=== PATIENT | female | born 1970 ===

== ENCOUNTER 2017-05-19 11:00 | Outpatient (RCR) | payer OTHER ==
[~2017-05-19 11:00] MED LIST changes: -LIDOCAINE/SOD BICARB 8.4% SYR ID ONE
--- NOTE | 2017-05-19 13:51 | RADIOLOGY IMAGING REPORT ---
[place] [facility] [place]: Mitali Leos : 1970 MR: [id number] V: [id number] EXAM DATE: ORDERING PHYSICIAN: KAUSHIK VAZQUEZ TECHNOLOGIST: Location: [facility] - [place] Patient: Mitali Leos : 1970 Visit/Account:[id number] Date of Sevice: 05/19/2017 EXAMINATION: Cervical spine MRI without IV contrast HISTORY: Right hand weakness. COMPARISON: None. TECHNIQUE: Multi-planar, multi-sequence cervical spine MRI was performed without intravenous contras t administration. FINDINGS: Alignment: Normal. Vertebral marrow signal: Negative. Cranio-cervical junction: Moderate hypertrophy of the atlantodental joint and left atlantoaxial joint . Normal alignment. Visualized posterior fossa: Negative. Soft tissues: Negative. Cervical cord: Negative. Disc Spaces: C1-2: No significant stenosis. C2-3: Small broad-based disc osteophyte complex with severe left facet hypertrophy. No spinal canal stenosis or right neural foraminal stenosis. Mild left neural foraminal stenosis. C3-4: Small broad-based disc osteophyte complex with severe left and [id number] right facet hyp ertrophy and mild bilateral uncovertebral hypertrophy. No significant spinal canal stenosis. Modera te right and severe left neural foraminal stenosis. C4-5: Small broad-based disc osteophyte complex with severe bilateral facet hypertrophy and mild unco vertebral hypertrophy. No spinal canal stenosis. Mild left and moderate right neural foraminal sten osis. C5-6: Small broad-based disc osteophyte complex with severe left and moderate right facet hypertrophy and mild uncovertebral hypertrophy. No spinal canal stenosis. Mild right and moderate left neural foraminal stenosis. C6-7: Small broad-based disc osteophyte complex with severe left and mild right facet hypertrophy and mild uncovertebral hypertrophy. No spinal canal stenosis. Mild right and moderate to severe left n eural foraminal stenosis. C7-T1: Mild bilateral facet hypertrophy. No significant stenosis. Upper thoracic spine: Small left central disc protrusion at T2-T3 without stenosis. IMPRESSION: Multilevel degenerative disc disease and severe facet hypertrophy. No significant spinal canal steno sis. Multilevel neural foraminal stenosis. Please see above report for level by level description. Report Dictated By: Eloy Francis MD at 05/19/2017 1:40 PM Report E-Signed By: Eloy Francis MD at 05/19/2017 1:47 PM WSN:[id number]
[2017-05-19] MEDS ORDERED: AMPH25CA7 PO (15:09)
[2017-05-20] MEDS ORDERED: LIDOCAINE/SOD BICARB 8.4% SYR ID ONE (13:30)
[2017-05-20] MEDS ORDERED: GADOBENATE 529MG/1ML 15ML VIAL IVP ONE (13:53)
--- NOTE | 2017-05-20 16:14 | RADIOLOGY IMAGING REPORT ---
FACILITY: [facility] - [place] PATIENT NAME: Mitali Leos : 1970 MR: [id number] V: [id number] EXAM DATE: ORDERING PHYSICIAN: KAUSHIK VAZQUEZ TECHNOLOGIST: Location: [facility] - [place] Patient: Mitali Leos : 1970 Visit/Account:[id number] Date of Sevice: 05/20/2017 Examination: MR brain without and with contrast History: Right hand weakness Comparison: January 21, 2017 Technique: Multiplane MR imaging was performed through the brain without and with contrast. 14 cc IV multihance was administered. Findings: Diffusion: None Ventricles: Normal Midline shift: None Extraxial fluid: None Midline craniocervical structures: Normal Parenchyma: Punctate unchanged right frontal juxtacortical white matter high signal focus and punctat e left frontal deep white matter high signal focus. Enhancement: Small benign right frontal lobe developmental venous anomaly noted. No pathologic enhan cement. Vascular flow voids: Normal Orbits and paranasal sinuses: Small right maxillary sinus mucous retention cyst. Impression: 1. No acute finding. 2. Two unchanged punctate white matter high signal foci of doubtful clinical significance. 2. Otherwise normal brain MR without and with contrast. Report Dictated By: Almas Linda MD at 05/20/2017 4:05 PM Report E-Signed By: Almas Linda MD at 05/20/2017 4:10 PM WSN:[id number]
== END 2017-05-20 18:00 | disposition home or self-care (01) ==
LOC: RAD 11:00 → EDSTATUS 11:49 → RAD 05-20 18:00
PROVIDERS: ATTEND Emergency Medicine
DX: R29.898 Other symptoms and signs involving the musculoskeletal system (principal)
CPT/HCPCS: 70553; 72141; A9577

== ENCOUNTER → 2017-05-19 | Outpatient (CLI) | payer OTHER ==
[~2017-05-19] MED LIST: AMOX-362 PO; AMPH10CA17 PO; AMPH20TA18 PO; AMPH25CA7 PO; CEPH500T7 PO; CIPR-214 PO; CYCL10TA29 PO; DEXT10TA9 PO; FLU60SYR30 IM ONLY; FLUT16SP19; KET10 PO; LIDOCAINE/SOD BICARB 8.4% SYR ID ONE; NAPR-724 PO; SERT-181 PO; SERT20OR6 PO
--- NOTE | 2017-05-19 14:46 | EKG ---
FACILITY: [facility] PATIENT NAME: EMILY RNEO : [id number] MR: [id number] V: [id number] EXAM DATE: ORDERING PHYSICIAN: KAUSHIK VAZQUEZ TECHNOLOGIST: JANESRN Test Reason : DIZZINESS Blood Pressure : / mmHG Vent. Rate : 113 BPM Atrial Rate : 113 BPM P-R Int : 158 ms QRS Dur : 092 ms QT Int : 320 ms P-R-T Axes : 062 045 -89 degrees QTc Int : [address] and T wave abnormality, consider inferolateral ischemia Abnormal ECG When compared with ECG of 07-MAY-2017 11:41, premature ventricular complexes are no longer present T wave inversion now evident in Inferior leads T wave inversion now evident in Lateral leads Confirmed by KAUSHIK VAZQUEZ ([id number]) on 05/27/2017 3:55:29 PM Referred By: RUMA MYLES Confirmed By:KAUSHIK VAZQUEZ
[2017-05-19 15:06] LABS: PLATELET COUNT, AUTOMATED 446 K/uL (150-450)
--- NOTE | 2017-05-19 15:14 | RADIOLOGY IMAGING REPORT ---
FACILITY: [facility] PATIENT NAME: Mitali Leos : 1970 MR: [id number] V: [id number] EXAM DATE: ORDERING PHYSICIAN: RUMA MYLES TECHNOLOGIST: Location: [facility] - [place] Patient: Mitali Leos : 1970 Visit/Account:[id number] Date of Sevice: 05/19/2017 2 VIEWS CHEST INDICATION: Dizziness. COMPARISON: 05/07/2017. FINDINGS: Cardiomediastinal silhouette and pulmonary vessels within normal limits. There is no focal infiltrate or lobar consolidation. There is no pneumothorax or pleural effusion. No nodule. Upper abdomen is unremarkable. No acute bony abnormality. IMPRESSION: 1. No acute cardiopulmonary process. Report Dictated By: Abdi Shrestha at 05/19/2017 3:07 PM Report E-Signed By: Abdi Shrestha at 05/19/2017 3:09 PM WSN:[id number]
== END ==
LOC: LAB 14:25
PROVIDERS: ATTEND Nurse Practitioner Primary Care
DX: R42 Dizziness and giddiness (principal); R94.31 Abnormal electrocardiogram [ECG] [EKG]
CPT/HCPCS: 36415; 71046; 82040; 82247; 82310; 82374; 82435; 82565; 82947; 84075; 84132; 84155; 84295; 84443; 84450; 84460; 84484; 84520; 85025

== ENCOUNTER 2017-06-12 16:53 | Emergency (ER) | payer OTHER ==
[~2017-06-12] VITALS: Ht 164.5 cm; Wt 68.5 kg
--- NOTE | 2017-06-12 16:57 | ER Report ---
History and Physical Time Seen By MD: 16:56 HPI/ROS CHIEF COMPLAINT: r ankle injury HISTORY OF PRESENT ILLNESS: Pt here for evaluation of r ankle injury. 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 Pt felt a "crack" in her r ankle when she slipped. Denies loc. no headache. Not sure if she hit her head. pt denies knee pain. no other symptoms. no numbness. hurts to move ankle REVIEW OF SYSTEMS: Neuro: No numbness, no loc, no headache Musculoskeletal: No back pain, + ankle pain R Allergies: Coded Allergies: diazepam (Verified Allergy, Unknown, 05/07/17) Home Meds Active Scripts Amphet Asp/Amphet/D-Amphet (ADDERALL XR 10 MG CAPSULE) 10 Mg Cap.er.24h, 10 MG PO QHS, #30 TAB Prov:KAUSHIK VAZQUEZ MD 06/13/17 Hydrocodone Bit/Acetaminophen (HYDROCODON-ACETAMINOPHEN 5-325) 1 Each Tablet, 1 EACH PO Q4-6H Y for PAIN, #20 TAB Prov:MADELYN HIGH DO 06/12/17 Amphet Asp/Amphet/D-Amphet (DEXTROAMP-AMPHET ER 25 MG CAP) 25 Mg Cap.er.24h, 25 MG PO DAILY, #30 TAB Prov:KAUSHIK VAZQUEZ MD 05/19/17 Cyclobenzaprine Hcl (CYCLOBENZAPRINE HCL) 10 Mg Tablet, 5-10 MG PO TID Y for MUSCLE SPASMS, #270 TAB Prov:KAUSHIK VAZQUEZ MD 05/08/17 Fluticasone Prop 50 Mcg Ns (FLONASE 50 MCG NS) 16 Gm [place].susp, 2 SPRAYS NA QDAY for 30 Days, #1 BOT 11 Refills Prov:ERIKA FOSTER JR, MD 04/23/17 Naproxen (NAPROXEN) 500 Mg Tablet, 500 MG PO TID, #30 TAB 5 Refills Prov:KAUSHIK VAZQUEZ MD 03/17/17 Discontinued Reported Medications Sertraline Hcl (SERTRALINE HCL) 100 Mg Tablet, 1.5 TAB PO QDAY, TAB 03/17/17 Discontinued Scripts Amphet Asp/Amphet/D-Amphet (ADDERALL XR 10 MG CAPSULE) 10 Mg Cap.er.24h, 10 MG PO QHS, #30 TAB Prov:KAUSHIK VAZQUEZ MD 05/08/17 Ketorolac Tromethamine (KETOROLAC TROMETHAMINE) 10 Mg Tab, 10 MG PO Q6H, #20 TAB Prov:RUTH KENNEDY [employer] LEAD 05/07/17 Past Medical/Surgical History pmhx: anxiety, migraines; low back pain Pshx: non contribuitory Reviewed Nurses Notes: Yes Hx Smoking: Yes Smoking Status: Former Smoker Exposure to Second Hand Smoke?: Yes Hx Substance Use Disorder: No Hx Alcohol Use: Yes Constitutional Vital Sign - Last 24 Hours 06/12/17 06/12/17 06/12/17 06/12/17 16:53 17:00 17:01 17:08 Temp 98.0 Pulse ??? 107 103 Resp 18 13 B/P (MAP) 153/98 153/99 (117) Pulse Ox 94 95 O2 Delivery Room Air 06/12/17 06/12/17 06/12/17 06/12/17 17:23 17:25 17:30 17:38 Pulse 102 112 Resp 23 25 B/P (MAP) 139/87 (104) 141/106 (118) Pulse Ox 92 06/12/17 06/12/17 06/12/17 17:53 17:57 18:02 Temp 97.8 Pulse ??? B/P (MAP) 137/84 (101) Physical Exam General appearance: alert no distress Right ankle: There is mild significant swelling medial and lateral maleolus. There is no obvious deformity to the ankle. There is moderate tenderness to the lateral malleolus. Ankle joint is stable and there is no tenderness over the achilles tendon. The foot is non-tender without swelling. Neg fibular tenderness Neurologic exam: The patient has normal sensation distal to the injury. Vascular exam: Normal pulses and capillary refill in the foot DIFFERENTIAL DIAGNOSIS: After history and physical exam differential diagnosis was considered for ankle injury including sprain, fracture, dislocation and soft tissue injury. Medical Decision Making EKG/Imaging Imaging + fx ED Course/Re-evaluation ED Course 06/12/2017 5:15:27 pm + fx of distal fibula with minimal displacement which is affecting the mortis. Pt will require a splint, sugar tong and posterior, crutches and follow up with orthopedics. 06/12/2017 5:41:32 pm Pt has strong pulses post splinting. Decision to Disposition Date: Jun 12, 2017 Decision to Disposition Time: 17:25 Depart Departure Latest Vital Signs Vital Signs Date Time Temp Pulse Resp B/P (MAP) Pulse Ox O2 Delivery O2 Flow Rate FiO2 06/12/17 18:02 97.8 06/12/17 17:57 137/84 (101) 06/12/17 17:53 ??? 06/12/17 17:38 25 06/12/17 17:23 92 06/12/17 17:00 Room Air Impression: Primary Impression: Right fibular fracture Condition: Improved Disposition: HOME OR SELF-CARE Referrals: KAUSHIK VAZQUEZ MD (PCP) MARGIE GRADY MD 2 Days [facility] 2 Days New Scripts Hydrocodone Bit/Acetaminophen (HYDROCODON-ACETAMINOPHEN 5-325) 1 Each Tablet 1 EACH PO Q4-6H Y for PAIN, #20 TAB Prov: MADELYN HIGH DO 06/12/17 Patient Instructions: Ankle Fracture (ED) Additional Instructions: You broke you ankle. You can not walk on your ankle. Keep in splint until you are seen by orthopedics. Call [facility] tomorrow and let them know you were in the emergency room and fractured your ankle. We have provided you with the number. Use crutches. Ice, elevate and rest your ankle. Motrin (advil, ibuprofen) 600mg every 6 hours as needed for pain Lortab one every 4 hours as needed for severe pain. Problem Qualifiers Primary Impression: Right fibular fracture Encounter type: initial encounter Fibula location: distal Fracture type: closed Fracture morphology: unspecified fracture morphology Qualified Codes: S82.831A - Other fracture of upper and lower end of right fibula, initial encounter for closed fracture MADELYN HIGH DO Jun 12, 2017 16:56
[2017-06-12] MEDS ORDERED: LOR5/325 PO (17:31)
[2017-06-12 17:57] VITALS: BP 137/84
--- NOTE | 2017-06-12 18:23 | RADIOLOGY IMAGING REPORT ---
FACILITY: [facility] - [place] PATIENT NAME: Mitali Leos : 1970 MR: [id number] V: [id number] EXAM DATE: ORDERING PHYSICIAN: MADELYN HIGH TECHNOLOGIST: Location: [facility] [place] Patient: Mitali Leos : 1970 Visit/Account:[id number] Date of Sevice: 06/12/2017 3 views right ankle INDICATION: Fall. Ankle pain. COMPARISON: None Available FINDINGS: 3 views of the right ankle are obtained. There is an acute, obliquely oriented fracture involving the distal shaft of the fibula. This extends into the upper portion of the lateral ankle mortise. There is lateral displacement of the distal fracture fragment by approximately 2 cortex widths. There is ab normal widening of the medial ankle mortise compatible with an underlying deltoid ligament injury. Th ere is mild widening of the distal tibia-fibula syndesmosis as well concerning for a syndesmotic inju ry. On the lateral projection, a subtle fracture is felt to involve the posterior malleolus of the di stal tibia. There is soft tissue swelling about the ankle with a small joint effusion. There is a heel spur. IMPRESSION: 1. Oblique fracture involving the distal right fibula extending into the lateral mortise. 2. Widened medial ankle mortise without medial sided fracture compatible with a deltoid ligament inju ry. 3. Subtle posterior malleolus fracture of the distal tibia. Report Dictated By: Major Jules at 06/12/2017 6:17 PM Report E-Signed By: Major Jules at 06/12/2017 6:20 PM WSN:[id number]
[2017-06-13] MEDS ORDERED: AMPH10CA17 PO ×2 (10:56→10:59)
[2017-06-16] MEDS ORDERED: AMPH25CA7 PO (08:42)
== END 2017-06-12 18:04 | disposition home or self-care (01) ==
LOC: ER 17:01
DX: S82.831A Other fracture of upper and lower end of right fibula, initial encounter for closed fracture (principal)
CPT/HCPCS: 99283

== ENCOUNTER → 2017-09-24 | Outpatient (CLI) | payer OTHER ==
[~2017-09-24] MED LIST changes: +LOR5/325 PO; +MELO-149 PO; -NAPR-724 PO; +NAPR500T31 PO; +SERT-173 PO; -SERT20OR6 PO
--- NOTE | 2017-09-24 14:08 | RADIOLOGY IMAGING REPORT ---
FACILITY: [facility] - [place] PATIENT NAME: Mitali Leos : 1970 MR: [id number] V: [id number] EXAM DATE: ORDERING PHYSICIAN: KAUSHIK VAZQUEZ TECHNOLOGIST: Location: [facility] [place] Patient: Mitali Leos : 1970 Visit/Account:[id number] Date of Sevice: 09/24/2017 DEXA Scan Clinical history: History of adult fracture. Comparison: None available. LUMBAR SPINE: The bone mineral density (BMD) measured from L1-L4 correlates with a Z-score 1.6 and a T-score of two which is Normal as defined by the World Health Organization. The corresponding risk of fracture in the lumbar spine is Not increased compared with a young adult reference population. HIP: Bone mineral density (BMD) measured in the Left total hip region correlates with a Z-score 1.3 and a T-score of 1.3 which is Normal as defined by the World Health Organization. The corresponding risk o f fracture in the hip is Not increased compared with a young adult reference population. T score le ft femoral neck one Bone mineral density (BMD) measured in the Femoral Neck region measures 1.171 g/cm2. Impression: 1. Lumbar spine: Normal. 2. Left Hip: Normal. 3. Femoral Neck: Bone Mineral Density is 1.171 g/cm2 The next DEXA scan of this patient should include the following sites: L1-L4 and the left hip. FRAX? WHO Fracture Risk Assessment Tool link: <http://www.shef.ac.uk/FRAX/tool.jsp?locationValue=9> PLEASE NOTE: 1) The World Health Organization defines low BMD as follows: T-score Normal > -1 Osteopenia < -1 and > -2.5 Osteoporosis < -2.5 without fractures Established osteoporosis < -2.5 with fractures 2) In general, you may wish to consider: Diagnosis Treatment Follow-up DEXA Normal BMD Prevention 2-3 years Osteopenia Prevention/therapy 1-2 years Osteoporosis Therapy Yearly 3) Fracture risk estimated from the T-score is more accurate for vertebral fractures (often spontane ous) than for hip fractures. Report Dictated By: Cee Austin MD at 09/24/2017 1:28 PM Report E-Signed By: Cee Austin MD at 09/24/2017 2:03 PM WSN:[email or web address]
== END ==
LOC: LAB 08:03
PROVIDERS: ATTEND Emergency Medicine
DX: S32.401A Unspecified fracture of right acetabulum, initial encounter for closed fracture (principal); E66.3 Overweight
CPT/HCPCS: 36415; 77080; 82306; 82310; 82465; 83718; 83970; 84478